=== PATIENT | male | born 2000 | race Caucasian/White ===

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

== ENCOUNTER 2020-01-29 09:36 | Inpatient (IN) ==
--- NOTE | 2020-01-29 09:46 | Emergency Department Note ---
History of Present Illness General Chief complaint: Mental Health Evaluation Stated complaint: MHE Source: patient, family and other (counselor) Mode of arrival: ambulatory Limitations: no limitations History of Present Illness Provider complaint: mood disorder Onset (ago): day(s) 1 This is a 19-year-old male who presents to the emergency department over concerns he is extremely anxious over coronavirus. The patient for his anxiety spoke with a counselor last evening. After speaking with a counselor the patient had difficulty sleeping and this morning woke up feeling worse. He reports nothing is making the anxiety better. He again spoke with his counselor this morning who sent him to the emergency department for further evaluation.Pt has a history of depression and has been prescribed Effexor and Buspar for the past few years. Pt feels as though the meds are no longer effective. He sees Ana M Garibay at [facility]. She added abilify (he only took it for 3 days because it made him feel groggy) and Wellbutrin one month ago. Pt took the Wellbutrin for 3-4 weeks but stopped because he reports that he started having episodes where he blacks out. He describes these episodes as lasting 10-30 min. His girlfriend described his behaviors to him during these periods as rang ing between yelling, throwing things, crying or just simply staring ahead. He states that he doesnt remember what happened when he snaps out of it. Home Medications Medication Instructions Recorded Confirmed Type ALBUTEROL HFA (VENTOLIN HFA) 2 - 4 puff INHALATION Q6H #0 07/22/17 01/29/20 History buspirone 7.5 mg PO BID 01/29/20 01/29/20 History venlafaxine 150 mg PO DAILY 01/29/20 01/29/20 History Allergies Allergy/AdvReac Type Severity Reaction Status Date / Time No Known Allergies Allergy Verified 01/29/20 10:03 Past Med/Surg History Social History Smoking Status: Never smoker Feels Safe at Home: Yes Review of Systems A total of 10 systems reviewed and were otherwise negative Physical Exam Vital Signs Vital Signs - 24 hr 01/29/20 09:44 Temperature 36.6 C Temperature Source Oral Pulse Rate 111 H Respiratory Rate 20 Blood Pressure 138/78 Blood Pressure Mean 98 Pulse Oximetry 96 Oxygen Delivery Method Room Air Sepsis Recent Fever Within 48 Hours No Sepsis New/Unexplained Change in Mental Status N/A Sepsis Action Taken by Nursing No Action Required VITAL SIGNS - Vital signs and nursing notes were reviewed. GENERAL - 19-year-old male appearing stated age who is in no acute distress. appears anxious SKIN - Without rashes. HEAD - NC/AT. EYES - PERRL with EOMI bilaterally. Sclera anicteric. Palpebral conjunctiva pink and moist with no injection noted. EARS - No deformities of external structures noted on gross examination bilaterally. No pain elicited with palpation of the tragus bilaterally. External auditory canals without discharge or otorrhea. Tympanic membranes pearly bansal without retraction or bulging. No fluid or purulent material visualized behind the TM. Handle of malleus, umbo, cone of light, pars tensa/flaccid all easily visualized. NOSE - Midline and without cyanosis. No epistaxis or purulent drainage noted. Septum midline without deviation or septal hematoma noted. MOUTH/OROPHARYNX - Without perioral cyanosis. Buccal mucosa pink and moist and without leukoplakia. Tongue midline with equal elevation of palate bilaterally. No tonsillar hypertrophy, erythema, or exudates noted. dentition noted. NECK - Neck with FROM. Supple to palpation. lymphadenopathy noted. No nuchal rigidity. LUNGS - Chest wall symmetric without accessory muscle use, intercostals retrac tions, or central cyanosis. Normal vesicular breath sounds CTA B/L. No wheezes, rales, or rhonchi appreciated. CARDIAC - RRR with S1/S2. No murmur, rubs, or gallops appreciated. ABDOMEN - Abdominal contour without pulsations or visible masses. BS normoactive all four quadrants. No tenderness, palpable masses, hepatosplenomegaly, or ascites noted. EXTREMITIES - No clubbing or peripheral cyanosis. No pretibial edema present. +3/5 radial, posterior tibial, and dorsalis pedis pulses palpated throughout. +5/5 strength noted in UE/LE bilaterally. NEUROLOGIC - Cranial nerves II through XII grossly intact. Sensory intact to light touch throughout. Patellar reflexes +2/4. PSYCH - A&Ox3 and cooperates fully with examiner. Pt is very pleasant and interacts well with examiner. Medical Decision Making Differential Diagnosis Mood disorder, infection, hypoglycemia, electrolyte abnormalities, cardiac sources, intracerebral event, toxicologic, trauma, neurologic, as well as other pathologies. Medical Records Attestation: I reviewed the patient's medical records. Home Medications Current Medication List: was personally reviewed by me Laboratory Data Attestation: I reviewed the patient's lab results. Result diagrams: 01/29/20 09:58 01/29/20 09:58 Lab Results 01/29/20 01/29/20 01/29/20 Range/Units 09:43 09:43 09:58 WBC 4.83 (4.8-10.8) K/uL RBC 4.82 (4.7-6.1) M/uL Hgb 13.9 L (14.0-18.0) g/dL Hct 41.1 L (42-52) % MCV 85.3 (80-100) fL MCH 28.8 (25-34) pg MCHC 33.8 (32-36) g/dL RDW Std Deviation 41.5 (36.4-46.3) fL RDW Coeff of Ann 13.4 (11.5-14.5) % Plt Count 192 (130-400) K/uL MPV 10.2 (7.4-10.4) fL Immature Gran % (Auto) 0.2 % Neut % (Auto) 58.6 % Lymph % (Auto) 30.4 % [place] % (Auto) 8.5 % Eos % (Auto) 1.9 % Baso % (Auto) 0.4 % Neut # (Auto) 2.83 (1.4-6.5) K/uL Lymph # (Auto) 1.47 (1.2-3.4) K/uL [place] # (Auto) 0.41 (0.11-0.59) K/uL Eos # (Auto) 0.09 (0-0.5) K/uL Baso # (Auto) 0.02 (0-0.2) K/uL Immature Gran # (Auto) 0.01 (0.00-0.02) K/uL Sodium (136-145) mmol/L Potassium (3.5-5.1) mmol/L Chloride (98-107) mmol/L Carbon Dioxide (21-32) mmol/L Anion Gap (3-11) BUN (7-18) mg/dl Creatinine (0.6-1.4) mg/dl Est Cr Clr Drug Dosing ml/min Est GFR ( Amer) Est GFR (Non-Af Amer) BUN/Creatinine Ratio (10-20) Glucose (70-99) mg/dl Calcium (8.5-10.1) mg/dl Total Bilirubin (0.2-1) mg/dl AST (15-37) U/L ALT (12-78) U/L Alkaline Phosphatase (45-117) U/L Total Protein (6.4-8.2) gm/dl Albumin (3.4-5.0) gm/dl Globulin (2.5-4.0) gm/dl Albumin/Globulin Ratio (0.9-2) TSH (0.300-4.500) uIu/ml Urine Color Yellow Urine Appearance Clear (Clear) Urine pH 7.0 (4.5-7.5) Ur Specific [place] 1.018 (1.000-1.030) Urine Protein Negative (Negative) Urine Glucose (UA) Negative (Negative) Urine Ketones Negative (Negative) Urine Blood Negative (Negative) Urine Nitrite Negative (Negative) Urine Bilirubin Negative (Negative) Urine Urobilinogen Negative (Negative) Ur Leukocyte Esterase Negative (Negative) Salicylates (2.8-20) mg/dl Urine Opiates Screen Neg (Neg) Ur Methadone, Qual Neg (Neg) Acetaminophen (10-30) ug/ml Urine Barbiturates Neg (Neg) Ur Phencyclidine (PCP) Neg (Neg) U Amphetamin/Meth Scrn Neg (Neg) MDMA (Ecstasy) Screen Neg (Neg) U Benzodiazepines Scrn Neg (Neg) Ur Cocaine Metabolite Neg (Neg) U Marijuana (THC) Screen Pos H (Neg) Ethyl Alcohol mg/dL (0-3) mg/dl 01/29/20 01/29/20 01/29/20 Range/Units 09:58 09:58 09:58 WBC (4.8-10.8) K/uL RBC (4.7-6.1) M/uL Hgb (14.0-18.0) g/dL Hct (42-52) % MCV (80-100) fL MCH (25-34) pg MCHC (32-36) g/dL RDW Std Deviation (36.4-46.3) fL RDW Coeff of Ann (11.5-14.5) % Plt Count (130-400) K/uL MPV (7.4-10.4) fL Immature Gran % (Auto) % Neut % (Auto) % Lymph % (Auto) % [place] % (Auto) % Eos % (Auto) % Baso % (Auto) % Neut # (Auto) (1.4-6.5) K/uL Lymph # (Auto) (1.2-3.4) K/uL [place] # (Auto) (0.11-0.59) K/uL Eos # (Auto) (0-0.5) K/uL Baso # (Auto) (0-0.2) K/uL Immature Gran # (Auto) (0.00-0.02) K/uL Sodium 142 (136-145) mmol/L Potassium 4.0 (3.5-5.1) mmol/L Chloride 109 H (98-107) mmol/L Carbon Dioxide 26 (21-32) mmol/L Anion Gap 6.0 (3-11) BUN 11 (7-18) mg/dl Creatinine 0.78 (0.6-1.4) mg/dl Est Cr Clr Drug Dosing 187.0 ml/min Est GFR ( Amer) > 150.0 Est GFR (Non-Af Amer) 130.9 BUN/Creatinine Ratio 14.2 (10-20) Glucose 94 (70-99) mg/dl Calcium 9.2 (8.5-10.1) mg/dl Total Bilirubin 0.3 (0.2-1) mg/dl AST 19 (15-37) U/L ALT 29 (12-78) U/L Alkaline Phosphatase 109 (45-117) U/L Total Protein 7.2 (6.4-8.2) gm/dl Albumin 3.7 (3.4-5.0) gm/dl Globulin 3.5 (2.5-4.0) gm/dl Albumin/Globulin Ratio 1.1 (0.9-2) TSH 0.684 (0.300-4.500) uIu/ml Urine Color Urine Appearance (Clear) Urine pH (4.5-7.5) Ur Specific [place] (1.000-1.030) Urine Protein (Negative) Urine Glucose (UA) (Negative) Urine Ketones (Negative) Urine Blood (Negative) Urine Nitrite (Negative) Urine Bilirubin (Negative) Urine Urobilinogen (Negative) Ur Leukocyte Esterase (Negative) Salicylates < 1.7 L (2.8-20) mg/dl Urine Opiates Screen (Neg) Ur Methadone, Qual (Neg) Acetaminophen < 2 L (10-30) ug/ml Urine Barbiturates (Neg) Ur Phencyclidine (PCP) (Neg) U Amphetamin/Meth Scrn (Neg) MDMA (Ecstasy) Screen (Neg) U Benzodiazepines Scrn (Neg) Ur Cocaine Metabolite (Neg) U Marijuana (THC) Screen (Neg) Ethyl Alcohol mg/dL < 3.0 (0-3) mg/dl MDM Narrative Patient was seen and evaluated as above in room A5. Review was performed of nursing notes and vital signs. I did review pertinent previous visits and patient history. After obtaining a thorough history and physical examination the above work up was performed. This is a 19-year-old male who presents emergency department over concerns about his anxiety. Patient was medically cleared by me. The patient was sent in by a counselor. He was independently evaluated by 3 S. liaison and was subsequently admitted. The patient was evaluated during the global COVID-19 pandemic, and that diagnosis was suspected/considered upon their initial presentation. Their evaluation, treatment and testing was consistent with current guidelines for patients who present with complaints or symptoms that may be related to COVID- 19. Impression & Plan Mood disorder Discharge Plan Visit Data Chief Complaint: Mental Health Evaluation Stated Complaint: MHE ED Provider: Gagan Colon Discharge Problem: Mood disorder Patient Disposition: Admitted As Inpatient Discharge Instructions Interventions: ED Discharge Assessment Last Done: 01/29/20 12:33
[2020-01-29 10:00] LABS: Appearance Urine Clear (Clear); Bilirubin Urine Negative (Negative); Blood Urine Negative (Negative); Color Urine Yellow; Glucose Urine UA Negative (Negative); Ketones Urine Negative (Negative); Leukocyte Esterase Urine Negative (Negative); Nitrite Urine Negative (Negative); Protein Urine Negative (Negative); Specific Gravity Urine 1.018 (1.000-1.030); Urobilinogen Urine Negative (Negative)
[2020-01-29 10:19] LABS: Basophils # (auto) 0.02 K/uL (0-0.2); Basophils % (auto) 0.4 %; Eosinophils # (auto) 0.09 K/uL (0-0.5); Eosinophils % (auto) 1.9 %; Hematocrit (blood only) 41.1 % (42-52); Hemoglobin 13.9 g/dL (14.0-18.0); Immature Granulocytes # (auto) 0.01 K/uL (0.00-0.02); Immature Granulocytes % (auto) 0.2 %; Lymphocytes # (auto) 1.47 K/uL (1.2-3.4); Lymphocytes % (auto) 30.4 %; Mean Corpuscular Hemoglobin 28.8 pg (25-34); Mean Corpuscular Hgb Conc 33.8 g/dL (32-36); Mean Corpuscular Volume 85.3 fL (80-100); Mean Platelet Volume 10.2 fL (7.4-10.4); Monocytes # (auto) 0.41 K/uL (0.11-0.59); Monocytes % (auto) 8.5 %; Neutrophils # (auto) 2.83 K/uL (1.4-6.5); Neutrophils % (auto) 58.6 %; Platelet Count 192 K/uL (130-400); RDW Coefficient of Variation 13.4 % (11.5-14.5); RDW Standard Deviation 41.5 fL (36.4-46.3); Red Blood Count 4.82 M/uL (4.7-6.1); White Blood Count 4.83 K/uL (4.8-10.8)
[2020-01-29 10:36] LABS: Amphetamines+Metham, Urine Neg (Neg); Barbiturates, Urine Neg (Neg); Benzodiazepine, Urine Neg (Neg); Cocaine, Urine Neg (Neg); MDMA (Ecstacy), Urine Neg (Neg); Methadone, Urine Neg (Neg); Opiate, Urine Neg (Neg); Phencyclidine, Urine Neg (Neg)
[2020-01-29 10:37] LABS: Alanine Aminotransferase 29 U/L (12-78); Albumin Level 3.7 gm/dl (3.4-5.0); Aspartate Aminotransferase 19 U/L (15-37); BUN Creatinine Ratio 14.2 (10-20); Blood Urea Nitrogen 11 mg/dl (7-18); Calcium 9.2 mg/dl (8.5-10.1); Carbon Dioxide 26 mmol/L (21-32); Chloride 109 mmol/L (98-107); Est GFR (African American) > 150.0; Est GFR (Non-African American) 130.9; Glucose 94 mg/dl (70-99); Sodium 142 mmol/L (136-145)
[2020-01-29 10:47] LABS: Albumin Globulin Ratio 1.1 (0.9-2); Alkaline Phosphatase 109 U/L (45-117); Bilirubin,Total 0.3 mg/dl (0.2-1); Globulin 3.5 gm/dl (2.5-4.0); Thyroid Stimulating Hormone 0.684 uIu/ml (0.300-4.500); Total Protein 7.2 gm/dl (6.4-8.2)
[2020-01-29 10:54] LABS: Acetaminophen < 2 ug/ml (10-30)
[2020-01-29 10:55] LABS: Salicylate < 1.7 mg/dl (2.8-20)
[2020-01-29] MEDS ORDERED: BISMUTH SUBSALICYLATE LIQD 236 ML PO PRN (11:52)
[2020-01-29] MEDS ORDERED: SODIUM CHLORIDE 0.65% NA SOLN 45 ML (OCEAN) PRN (11:52)
[2020-01-29] MEDS ORDERED: ACETAMINOPHEN 325 MG TAB PO PRN (11:52)
[2020-01-29] MEDS ORDERED: hydrOXYzine HCl 25 MG TAB PO PRN ×2 (11:52)
[2020-01-29] MEDS ORDERED: ALUMINUM/MAGNESIUM SUSP 30 ML UDC PO PRN (11:52)
[2020-01-29] MEDS ORDERED: MAGNESIUM HYDROXIDE SUSP 30 ML UDC PO PRN (11:52)
[2020-01-29] MEDS ORDERED: ALBUTEROL HFA INHALER 8.5 GM INH PRN (12:05)
--- NOTE | 2020-01-29 12:14 | History & Physical ---
Date of Service January 29, 2020 Impression / Recommendations Impression 19-year-old biologically male patient who identifies as nonbinary admitted voluntarily for inpatient psychiatric treatment on 01/29/2020 due to severe anxiety, inability to function/care for self, and failure of outpatient psychiatric treatment. It was reported that patient has been experiencing "black-outs" lasting 10-30 minutes of crying, throwing things, or staring off into the distance. Pt has a recent diagnosis of depression "with mood congruent psychotic symptoms", for which they have been taking venlafaxine 150mg and buspirone 7.5mg BID to target anxiety, but no longer feels these medications are effective. They had a brief trial of aripiprazole, but stopped the medication as it led to headaches and feeling groggy. Pt had also been prescribed bupropion 100mg but stated that this medication contributed to increased "black outs" and GI upset and was therefore not tolerated. Pt did feel that venlafaxine had historically been beneficial for mood and anxiety symptoms, and is interested in increasing the dose before trialing another agent. Of note, the patient's mother has reportedly done well with escitalopram for treatment of depression. Pt also agreed to titrating buspirone to 10mg BID to target anxiety, and we can consider further increase as indicated/tolerated. Although the patient is not yet comfortable opening up about details related to auditory hallucinations, this will need to be explored further in order to make a better diagnostic assessment. While staff builds therapeutic rapport and patient acclimates to the unit, we will offer prn dosing of risperidone 0.5mg to target hallucinations. Pt will be encouraged to participate in group and recreational programming. We will encourage a family meeting to discuss safety and discharge planning. At this time, patient is experiencing significant anxiety and is no longer able to care for their needs in the outpatient setting. They are not presently reporting SI, but did report an attempt to self-harm by cutting within the context of a blackout episode. The patient's failure of outpatient treatment is concerning and inpatient psychiatric hospitalization is felt to be medically necessary at this time. Dr. Radha Peacock was directly involved in review and discussion of the patient's case and participated in medical decision making regarding treatment recommendations. (1) Mood disorder: 01/28 - Working diagnosis of unspecified mood disorder. Differential includes: major depressive disorder, MDD with psychotic features, substance-induced mood disorder/hallucinations, schizoaffective disorder, personality disorder, or other possible diagnoses. Will build therapeutic rapport with the patient to better determine the most appropriate diagnosis as they feel comfortable discussing symptoms. - Titrating venlafaxine to 187.5mg qAM - Titrating buspirone to 10mg BID, adding prn risperidone 0.5mg to be used to target auditory hallucinations - Will attempt to gather collateral information from outpatient psychiatric providers - Encourage participation in group and recreational programming - Assist with development of healthy and effective coping skills - Encourage a family meeting to discuss discharge and safety planning - 15 minute observation checks to ensure safety while admitted to a locked behavioral health unit (2) Auditory hallucinations: 01/28 - Pt is not yet comfortable discussing the auditory hallucinations in great detail, which limits the ability to better determine their etiology. They cert ainly could be a function of patient's regular marijuana use. They could also be occurring within the context of MDD with psychotic features, schizoaffective disorder, or a function of an underlying personality disorder. - Will build therapeutic rapport and assist patient in opening up about these details during their stay. - In the interim, prn risperidone 0.5mg is available to target the auditory hallucinations directly (3) Generalized anxiety disorder with panic attacks: 01/28 - "Black outs" seem to be most consistent with panic attacks, and result from specific stressful triggers. - Titrating venlafaxine and buspirone as above, adding risperidone prn for auditory hallucinations/agitation - PRN hydroxyzine is available as needed for anxiety/sleep - Assist patient with development of healthy and effective coping strategies Risk Factors Assessment : Yes Do You Have Access To A Gun?: No Health Problems: No Mental Health Diagnoses: Yes Substance Use Disorders: Yes (chronic marijuana use) Previous Attempt: No Family History of Suicide: No Previous Psychiatric Hospitalization: No Hopelessness: Yes Smoker: No Protective Factors Assessment Oriental Orthodox Beliefs: No : No Responsible for Young Children: No Employed: No Stable Relationships: Yes Psychiatric History Identifying Data LINDA SAHNI (JAY) is a 19-year-old biologically male individual who identifies as non-binary with a preference for "they/them/their" pronouns. Language used in this documentation will reflect that preference. The patient currently lives in [place], [place] where they are attending school, but family lives in [place]. The patient has a history of depression and anxiety, and was admitted on 01/29/2020 on a 201 voluntary commitment for worsening anxiety and depression leading to failure of outpatient treatment and inability to adequately care for self. Chief Complaint "I've been having a lot of new symptoms with my anxiety and depression. It started about a month ago." History of Present Illness Linda Sahni (Jay) is a 19-year-old biologically male individual who identifies as nonbinary and prefers "they/them/their" pronouns. Language in this H&P will reflect this preference. The patient was admitted voluntarily for inpatient psychiatric treatment on 01/29/2020 after presenting to the ED for mental health evaluation. Armani was reportedly experiencing significant anxiety last evening, but was able to contract for safety in the outpatient setting. The morning of admission, it was reported that their anxiety was worse and they did not feel they were able to manage symptoms safely. Pt did report that they had recently attempted to self-harm by cutting with an X-acto knife within the contest of a "black-out" episode. These urges have become more frequent, and friends have reported concern for recent changes in behavior. Armani reported in the ED that these episodes can last for 10-30 minutes, but patient does not often recall events that occur during these times. Inpatient admission was suggested and patient was willing for discussion regarding worsening symptoms and possible medication changes. Additional stressors at this time include poor academic performance, long-distance relationship with their girlfriend, and their mother receiving treatment for breast cancer. The patient is cooperative and pleasant, but is rather timid. They states "I've been having a lot of new symptoms with my anxiety and depression. It started about a month ago." The patient reports that they had been evaluated by two psychologist recently and they were informed their diagnosis is "MDD with mood congruent psychotic symptoms." The patient also has been following with Ana M Garibay at [facility] for several years for medication management. The patient states that new symptoms of "episodes, blackouts, getting upset, irritable, stuttering, and ticking" in the last month - generally in the context of specific identified stressors. The patient states that in the moment they are not generally aware of their actions, but are able to recall events that occur during these blackouts with prompting from witnesses. The patient reports that they had previously done well with venlafaxine for treatment of anxiety and depression, but feels "I'm no longer satisfied with what it's doing." This was expressed to their outpatient psychiatric PAGena who suggested a trial of Wellbutrin. The patient states that this made the "episodes" worse and also led to GI upset. A brief trial of Abilify was also suggested; however, led to headache which patient states they could not tolerate. The patient admits they are diligent about taking their medications as prescribed. Pt does admit to increased anxiety and depression, rating average mood over the last 1-2 months as a 2-3/10 (10=best). The patient states they have been struggling intermittently with SI and SIB, even acting on SIB urges by superficially cutting their arm recently. The patient admits to passive SI, but denies plan or intent. They are denying SI presently. The patient does admit to decreased motivation and productivity, increased appetite, difficulty concentrating, hopelessness, worthlessness, and some memory concerns. The patient also admits that they have been experiencing auditory hallucinations of "several voices, they are angry" which are described as "constant, unless I'm having a really good day, but that's rare." Unfortunately, the patient states that they are "too scared to talk about this anymore." It is reported that the voices were first observed about 1 month ago. Pt was reassured that it is ok to not discuss this in detail at this time, but that it would be beneficial for patient to open up about this as they feel more comfortable with staff. Pt does admit to daily marijuana use, but denies other significant substance use. This is their first psychiatric hospitalization. Past Psychiatric History Current Psychiatric Diagnosis: Depression Outpatient Services: Psychiatry - Ana M Garibay PA-C - [facility] - [facility] - [facility] - [place] Previous Psych Admissions: None Do You Have Access To A Gun?: No History of Previous Suicide Attempt: No Past Medication Trials: 1. Hydroxyzine 2. Wellbutrin 3. Abilify - d/c'd after 3 days as it caused him to feel groggy 4. Effexor 5. BuSpar Past Head Trauma/Neuro History History of Concussion/Seizure: No Allergies Allergy/AdvReac Type Severity Reaction Status Date / Time No Known Allergies Allergy Verified 01/29/20 10:03 Home Medications Medication Instructions Recorded Confirmed Type ALBUTEROL HFA (VENTOLIN HFA) 2 - 4 puff INHALATION Q6H #0 07/22/17 01/29/20 History buspirone 7.5 mg PO BID 01/29/20 01/29/20 History venlafaxine 150 mg PO DAILY 01/29/20 01/29/20 History Family History Family History of: Depression (maternal side of family) and Anxiety (maternal side of family) Family Mental Health History Comment: Mother - depression/anxiety Alcohol History Hx of Alcohol Use Over the Past 12 Months: Yes Pt does admit to occasional alcohol use. Frequency of "a couple times a month", generally drink to the point of "feeling buzzed." Smoking Use Smoking Status: Never smoker Substance History Hx of Prescription Med Misuse Over the Past 12 Months: No Hx of Over the Counter Med Misuse Over the Past 12 Months: No Hx of Inhalent Misuse Over the Past 12 Months: No Hx of Organic Substance Use Over the Past 12 Months: Yes (marijuana) Hx of Illegal Substances/Street Drug Use Over Past 12 Months: No Admits to routine/daily marijuana use. Reports they have not smoked MJ in the last "few days". Personal History Living Arrangements: Apartment (lives with friends in [place] ) Living Arrangements Comments: Family resides in [place]. Highest Grade Completed: Some College (currently a Sophomore at [employer] - studying Education) Employment Status: Student Marital Status: Single (relationship with girlfriend has been long-distance due to COVID-19 pandemic) Number Of Children: None Beliefs That Will Affect Care: None Current Legal Problems: No Hx Legal Problems: No Hx Traumatic Life Events: No Psychological Trauma History Comment: Denied Patient History Surgical History (Updated 01/29/20 @ 14:06 by Jess Sheehan PA-C) History of knee surgery Social History Smoking Status: Never smoker Preferred Language: Syriac Communication Ability: Effective Occupational Ther Required: No Beliefs That Will Affect Care: None Feels Safe at Home: Yes Assistive Devices: Glasses Review of Systems Review of Systems: Constitutional: denied Cardiovascular: denied Respiratory: denied Gastrointestinal: denied Neurological: denied Psychiatric: denies symptoms other than stated above Total of at least 10 systems reviewed, pertinent positives as above and in HPI. Physical Exam Psychiatric: Orientation: alert, oriented x 3 and cooperative (timid, but polite and cooperative) Apperance: appropriately dressed and appropriately groomed Pt's appearance is generally phenotypically male. They have short hair, but hair is dyed a bright pink color. Pt is wearing corrective lenses and has a nose piercing. Pt is clutching a stuffed alligator for the duration of our conversation. Clothing is also phenotypically male, patient wearing a t- shirt, zip-up hoodie, and jeans. Level of grooming and hygiene appears adequate. Eye Contact: + poor eye contact Motor Behavior: + psychomotor agitation; + abnormal motor movements Pt is fidgety, frequently changing positions or shaking their foot. Intermittently, full body tics/jerks are observed which patient states are consistent with "black out episodes" Speech: normal rate/rhythm/volume of speech Affect: + depressed affect, + anxious affect and mood congruent with affect Mood: + depressed mood and + anxious mood Thought Process: goal directed thought process, clear/coherent thought process and thought association intact Thought Content: reality based without delusions and + hopelessness Suicidal Thoughts: denies suicidal thoughts, denies suicidal plan and denies suicidal intent Presently denying SI, but does admit to occasional SI without plan or intent Homicidal Thoughts: denies homicidal thoughts Hallucinations: + auditory hallucinations (reports hearing several voices "all the time", voices are "angry"); no visual hallucinations Limited willingness at this time to discuss the specifics of the auditory hallucinations Cognition: attention grossly intact and language grossly intact Estimated Intelligence: consistent with education level Insight: + fair insight Judgement: + fair judgement Vital Signs (Past 24 Hours): Last Vital Signs Temp 36.6 C 01/29/20 09:44 Pulse 111 H 01/29/20 09:44 Resp 20 01/29/20 09:44 BP 138/78 01/29/20 09:44 Pulse Ox 96 01/29/20 09:44 Exam Statement: A physical exam was performed in the ER prior to admission to the unit by Dr. Gagan Colon MD. I accept that physical as correct/medical clearance for the inpatient physical exam. Results & Data ([facility]) Laboratory Results Laboratory Results - last 24 hr 11/01/29/20 01/29/20 09:43 09:43 09:43 WBC RBC Hgb Hct MCV MCH MCHC RDW Std Deviation RDW Coeff of Ann Plt Count MPV Immature Gran % (Auto) Neut % (Auto) Lymph % (Auto) [place] % (Auto) Eos % (Auto) Baso % (Auto) Neut # (Auto) Lymph # (Auto) [place] # (Auto) Eos # (Auto) Baso # (Auto) Immature Gran # (Auto) Sodium Potassium Chloride Carbon Dioxide Anion Gap BUN Creatinine Est Cr Clr Drug Dosing Est GFR ( Amer) Est GFR (Non-Af Amer) BUN/Creatinine Ratio Glucose Calcium Total Bilirubin AST ALT Alkaline Phosphatase Total Protein Albumin Globulin Albumin/Globulin Ratio TSH Urine Color Yellow Urine Appearance Clear Urine pH 7.0 Ur Specific Erick 1.018 Urine Protein Negative Urine Glucose (UA) Negative Urine Ketones Negative Urine Blood Negative Urine Nitrite Negative Urine Bilirubin Negative Urine Urobilinogen Negative Ur Leukocyte Esterase Negative Salicylates Urine Opiates Screen Neg Ur Methadone, Qual Neg Acetaminophen Urine Barbiturates Neg Ur Phencyclidine (PCP) Neg U Amphetamin/Meth Scrn Neg MDMA (Ecstasy) Screen Neg U Benzodiazepines Scrn Neg Ur Cocaine Metabolite Neg U Marijuana (THC) Screen Pos H U Marijuana THC Carboxy Pending Drug Screen Comment Pending Ethyl Alcohol mg/dL SARS-CoV-2 Ag (Rapid) 01/29/20 01/29/20 01/29/20 09:58 09:58 09:58 WBC 4.83 RBC 4.82 Hgb 13.9 L Hct 41.1 L MCV 85.3 MCH 28.8 MCHC 33.8 RDW Std Deviation 41.5 RDW Coeff of Ann 13.4 Plt Count 192 MPV 10.2 Immature Gran % (Auto) 0.2 Neut % (Auto) 58.6 Lymph % (Auto) 30.4 [place] % (Auto) 8.5 Eos % (Auto) 1.9 Baso % (Auto) 0.4 Neut # (Auto) 2.83 Lymph # (Auto) 1.47 [place] # (Auto) 0.41 Eos # (Auto) 0.09 Baso # (Auto) 0.02 Immature Gran # (Auto) 0.01 Sodium 142 Potassium 4.0 Chloride 109 H Carbon Dioxide 26 Anion Gap 6.0 BUN 11 Creatinine 0.78 Est Cr Clr Drug Dosing 187.0 Est GFR ( Amer) > 150.0 Est GFR (Non-Af Amer) 130.9 BUN/Creatinine Ratio 14.2 Glucose 94 Calcium 9.2 Total Bilirubin 0.3 AST 19 ALT 29 Alkaline Phosphatase 109 Total Protein 7.2 Albumin 3.7 Globulin 3.5 Albumin/Globulin Ratio 1.1 TSH 0.684 Urine Color Urine Appearance Urine pH Ur Specific Erick Urine Protein Urine Glucose (UA) Urine Ketones Urine Blood Urine Nitrite Urine Bilirubin Urine Urobilinogen Ur Leukocyte Esterase Salicylates < 1.7 L Urine Opiates Screen Ur Methadone, Qual Acetaminophen < 2 L Urine Barbiturates Ur Phencyclidine (PCP) U Amphetamin/Meth Scrn MDMA (Ecstasy) Screen U Benzodiazepines Scrn Ur Cocaine Metabolite U Marijuana (THC) Screen U Marijuana THC Carboxy Drug Screen Comment Ethyl Alcohol mg/dL SARS-CoV-2 Ag (Rapid) 01/29/20 01/29/20 09:58 Unknown WBC RBC Hgb Hct MCV MCH MCHC RDW Std Deviation RDW Coeff of Ann Plt Count MPV Immature Gran % (Auto) Neut % (Auto) Lymph % (Auto) [place] % (Auto) Eos % (Auto) Baso % (Auto) Neut # (Auto) Lymph # (Auto) [place] # (Auto) Eos # (Auto) Baso # (Auto) Immature Gran # (Auto) Sodium Potassium Chloride Carbon Dioxide Anion Gap BUN Creatinine Est Cr Clr Drug Dosing Est GFR ( Amer) Est GFR (Non-Af Amer) BUN/Creatinine Ratio Glucose Calcium Total Bilirubin AST ALT Alkaline Phosphatase Total Protein Albumin Globulin Albumin/Globulin Ratio TSH Urine Color Urine Appearance Urine pH Ur Specific Erick Urine Protein Urine Glucose (UA) Urine Ketones Urine Blood Urine Nitrite Urine Bilirubin Urine Urobilinogen Ur Leukocyte Esterase Salicylates Urine Opiates Screen Ur Methadone, Qual Acetaminophen Urine Barbiturates Ur Phencyclidine (PCP) U Amphetamin/Meth Scrn MDMA (Ecstasy) Screen U Benzodiazepines Scrn Ur Cocaine Metabolite U Marijuana (THC) Screen U Marijuana THC Carboxy Drug Screen Comment Ethyl Alcohol mg/dL < 3.0 SARS-CoV-2 Ag (Rapid) Negative Current Inpatient Medications Current Inpatient Medications: Current Inpatient Medications Acetaminophen (Acetaminophen 325 Mg Tab) 650 mg PO Q4H PRN PRN Reason: Headache or Minor Fever Stop: 02/28/20 11:51 Al Hydrox/Mg Hydrox/Simethicone (Aluminum/Magnesium Susp 30 Ml Udc) 30 ml PO Q4H PRN PRN Reason: GI Upset Stop: 02/28/20 11:51 Bismuth Subsalicylate (Bismuth Subsalicylate Liqd 236 Ml) 15 ml PO PRN PRN PRN Reason: Loose Stool Stop: 02/28/20 11:51 Hydroxyzine HCl (Hydroxyzine Hcl 25 Mg Tab) 50 mg PO HSZ PRN PRN Reason: Insomnia Stop: 02/28/20 11:51 Hydroxyzine HCl (Hydroxyzine Hcl 25 Mg Tab) 25 mg PO Q4H PRN PRN Reason: Anxiety Stop: 02/28/20 11:51 Magnesium Hydroxide (Magnesium Hydroxide Susp 30 Ml Udc) 30 ml PO DAILY PRN PRN Reason: Constipation Stop: 02/28/20 11:51 Non-Formulary Medication (Albuterol Hfa (Ventolin Hfa)) 2 - 4 puffs INH Q6H PRN PRN Reason: shortness of breath Stop: 02/28/20 11:59 Sodium Chloride (Sodium Chloride 0.65% Na Soln 45 Ml ([place])) 1 - 2 sprays NA PRN PRN PRN Reason: Nasal Dryness/Congestion Stop: 02/28/20 11:51
[2020-01-29] MEDS: busPIRone 5 MG TAB PO SCH (21:14)
[2020-01-30] MEDS: VENLAFAXINE HCL XR 150 MG CAPXR PO SCH (08:40)
[2020-01-30] MEDS: VENLAFAXINE HCL XR 37.5 MG CAPXR PO SCH (08:40)
[2020-01-30] MEDS: busPIRone 5 MG TAB PO SCH ×2 (08:41→14:44)
--- NOTE | 2020-01-30 11:32 | Psychiatric Progress Note ---
Date of Service January 30, 2020 Impression / Recommendations Impression 19-year-old biologically male patient who identifies as nonbinary admitted voluntarily for inpatient psychiatric treatment on 01/29/2020 due to severe anxiety, inability to function/care for self, and failure of outpatient psychiatric treatment. It was reported that patient has been experiencing "black-outs" lasting 10-30 minutes of crying, throwing things, or staring off into the distance. Pt has a recent diagnosis of depression "with mood congruent psychotic symptoms", for which they have been taking venlafaxine 150mg and buspirone 7.5mg BID to target anxiety, but no longer feels these medications are effective. They had a brief trial of aripiprazole, but stopped the medication as it led to headaches and feeling groggy. Pt had also been prescribed bupropion 100mg but stated that this medication contributed to increased "black outs" and GI upset and was therefore not tolerated. Pt did feel that venlafaxine had historically been beneficial for mood and anxiety symptoms, and is interested in increasing the dose before trialing another agent. Of note, the patient's mother has reportedly done well with escitalopram for treatment of depression. Pt also agreed to titrating buspirone to 10mg BID to target anxiety, and we can consider further increase as indicated/tolerated. Although the patient is not yet comfortable opening up about details related to auditory hallucinations, this will need to be explored further in order to make a better diagnostic assessment. While staff builds therapeutic rapport and patient acclimates to the unit, we will offer prn dosing of risperidone 0.5mg to target hallucinations. Pt will be encouraged to participate in group and recreational programming. We will encourage a family meeting to discuss safety and discharge planning. At this time, patient is experiencing significant anxiety and is no longer able to care for their needs in the outpatient setting. They are not presently reporting SI, but did report an attempt to self-harm by cutting within the context of a blackout episode. The patient's failure of outpatient treatment is concerning and inpatient psychiatric hospitalization is felt to be medically necessary at this time. 01/29--reviewed, reports feeling calmer today, still difficult to confirm hx with and doesn't elaborate on sellers but no evidence of thought or behavioral disorganization that would suggest a primary thought disorder. Main differential seems MDD with PF and anxiety vs unspecified bipolar disorder. (1) Mood disorder: 01/28 - Working diagnosis of unspecified mood disorder. Differential includes: major depressive disorder, MDD with psychotic features, substance-induced mood disorder/hallucinations, schizoaffective disorder, personality disorder, or other possible diagnoses. Will build therapeutic rapport with the patient to better determine the most appropriate diagnosis as they feel comfortable discussing symptoms. - Titrating venlafaxine to 187.5mg qAM - Titrating buspirone to 10mg BID, adding prn risperidone 0.5mg to be used to target auditory hallucinations - Will attempt to gather collateral information from outpatient psychiatric providers - Encourage participation in group and recreational programming - Assist with development of healthy and effective coping skills - Encourage a family meeting to discuss discharge and safety planning - 15 minute observation checks to ensure safety while admitted to a locked behavioral health unit 01/29--shifted doses of Buspar for better day time coverage, monitor for activation on higher dose of Effexor XR. Given other symptoms/reaction to Wellbutrin, hesitant to continue antidepressant alone. Consider Lamictal. Abstain from MJ. (2) Auditory hallucinations: 01/28 - Pt is not yet comfortable discussing the auditory hallucinations in great detail, which limits the ability to better determine their etiology. They certainly could be a function of patient's regular marijuana use. They could also be occurring within the context of MDD with psychotic features, schizoaffective disorder, or a function of an underlying personality disorder. - Will build therapeutic rapport and assist patient in opening up about these details during their stay. - In the interim, prn risperidone 0.5mg is available to target the auditory hallucinations directly 01/29--if sellers recur, encouraged to use Risperdal prn. Abstain from MJ. (3) Generalized anxiety disorder with panic attacks: 01/28 - "Black outs" seem to be most consistent with panic attacks, and result from specific stressful triggers. - Titrating venlafaxine and buspirone as above, adding risperidone prn for auditory hallucinations/agitation - PRN hydroxyzine is available as needed for anxiety/sleep - Assist patient with development of healthy and effective coping strategies 01/29--atypical, ?mood drive, abstain from MJ. Risk Factors Assessment : Yes Do You Have Access To A Gun?: No Health Problems: No Mental Health Diagnoses: Yes Substance Use Disorders: Yes (chronic marijuana use) Previous Attempt: No Family History of Suicide: No Previous Psychiatric Hospitalization: No Hopelessness: Yes Smoker: No Protective Factors Assessment Worship Beliefs: No : No Responsible for Young Children: No Employed: No Stable Relationships: Yes Interval History Chief Complaint "I just felt like a block like I couldn't talk about certain things". Review of Systems Sleep Information Total Hours of Sleep: 6.5 Meal Information Percent Meal Consumed - Breakfast: 100 Percent Meal Consumed - Dinner: 100 Subjective Subjective Patient was seen & assessed and interval progress reviewed with nursing. Has been cooperative on unit. Ambivalent about Effexor XR increase, states that it's helped them in past but also that makes feel numb. Attempted to obtain additional history around stressors, discussed stressors as a pie--endorses that 5/10 of pie are school related stressors. 3/10 are "gender stuff I wanted to see a specialized therapist for", and 2/10 worry about mom following 1st round of chemo for breast CA, had issues with her port on same day he was hospitalized. Worries as father ED physician and exposed to COVID. States that despite decline in mood and behavioral control for past 2 months, has been able to keep up with school work. Grades just "aren't as good" as usual. Doesn't elaborate further, still states "they told me not to talk about them" when discussing aud sellers, notes from [facility] state more than 2 arguing, denies command in nature. States that no association with MJ use or his "spells" where breaks into "someone else" for 20 min-1 hr. Spells occur once a week, more often when on Wellbutrin. Views self as primarily anxious, feeling in body rather than specific thought, no persistent periods of elevated mood but certainly irritable during the outbursts. Physical Exam Psychiatric Orientation: alert Apperance: appropriately dressed and appropriately groomed Eye Contact: + fair eye contact Motor Behavior: no abnormal motor movements Speech: normal rate/rhythm/volume of speech Affect: + depressed affect Mood: + depressed mood and + anxious mood Thought Process: goal directed thought process Thought Content: reality based without delusions Suicidal Thoughts: denies suicidal thoughts Homicidal Thoughts: denies homicidal thoughts Hallucinations: + auditory hallucinations (endorses in general but does not appear to be responding to internal stim) Cognition: attention grossly intact Estimated Intelligence: consistent with education level Insight: + limited insight Judgement: + limited judgement Vital Signs (Past 24 Hours) Last Vital Signs Temp 36.6 C 01/30/20 06:55 Pulse 87 01/30/20 06:55 Resp 16 01/30/20 06:55 BP 112/68 01/30/20 06:55 Pulse Ox 99 01/29/20 12:19 Results & Data ([facility]) Current Inpatient Medications Current Inpatient Medications: Current Inpatient Medications Acetaminophen (Acetaminophen 325 Mg Tab) 650 mg PO Q4H PRN PRN Reason: Headache or Minor Fever Stop: 02/28/20 11:51 Al Hydrox/Mg Hydrox/Simethicone (Aluminum/Magnesium Susp 30 Ml Udc) 30 ml PO Q4H PRN PRN Reason: GI Upset Stop: 02/28/20 11:51 Albuterol (Albuterol Hfa Inhaler 8.5 Gm) 2 - 4 puffs INH Q6H PRN PRN Reason: shortness of breath Stop: 02/28/20 12:04 Bismuth Subsalicylate (Bismuth Subsalicylate Liqd 236 Ml) 15 ml PO PRN PRN PRN Reason: Loose Stool Stop: 02/28/20 11:51 Buspirone HCl (Buspirone 5 Mg Tab) 10 mg PO [id number] ANITA Stop: 02/29/20 13:59 Hydroxyzine HCl (Hydroxyzine Hcl 25 Mg Tab) 50 mg PO HSZ PRN PRN Reason: Insomnia Stop: 02/28/20 11:51 Hydroxyzine HCl (Hydroxyzine Hcl 25 Mg Tab) 25 mg PO Q4H PRN PRN Reason: Anxiety Stop: 02/28/20 11:51 Last Admin: 01/30/20 03:10 Dose: 25 mg Documented by: Magnesium Hydroxide (Magnesium Hydroxide Susp 30 Ml Udc) 30 ml PO DAILY PRN PRN Reason: Constipation Stop: 02/28/20 11:51 Risperidone (Risperidone 0.5 Mg Tablet) 0.5 mg PO Q6H PRN PRN Reason: auditory sellers/agitation Stop: 02/28/20 14:24 Sodium Chloride (Sodium Chloride 0.65% Na Soln 45 Ml ([place])) 1 - 2 sprays NA PRN PRN PRN Reason: Nasal Dryness/Congestion Stop: 02/28/20 11:51 Venlafaxine HCl (Venlafaxine Hcl Xr 150 Mg Capxr) 150 mg PO DAILY ANITA Stop: 02/29/20 08:59 Last Admin: 01/30/20 08:40 Dose: 150 mg Documented by: Venlafaxine HCl (Venlafaxine Hcl Xr 37.5 Mg Capxr) 37.5 mg PO QAM ANITA Stop: 02/29/20 08:59 Last Admin: 01/30/20 08:40 Dose: 37.5 mg Documented by: Mental Health & Subst Abuse Tx Psychiatrist Name of Psychiatrist: [facility] Garibay Psychiatrist's Date of Appointment with Psychiatrist: 02/13/20 Time of Appointment with Psychiatrist: 8:30 a.m. Psychiatric Appointment Comment: In person appt due to hospital discharge Therapist Name of Therapist: Samuel Ferro Therapist's Date of Therapist Appointment: 02/06/20 Time of Therapist Appointment: 9:30 a.m. Therapy Appointment Comment: Telehealth (will email you the link), if wanted in person please call Fingernail Former Name of Fingernail Former: None Post Discharge Appointments Primary Care Physician Name Of Family Doctor: Avi Mckeon Primary Care Time of Appointment with PCP: Please follow up as needed Provider Appointment Comment: [address], [place] [address] Contact Information Discharge Discharge Address: [address] [place] [address], [place] [address]
[2020-01-30] MEDS: risperiDONE 0.5 MG TABLET PO PRN (21:33)
[2020-01-31 04:01] LABS: Marijuana Quant, GCMS Urine 28 ng/mL (<5)
[2020-01-31] MEDS: busPIRone 5 MG TAB PO SCH ×2 (06:34→13:51)
[2020-01-31] MEDS: VENLAFAXINE HCL XR 150 MG CAPXR PO SCH (08:48)
[2020-01-31] MEDS: VENLAFAXINE HCL XR 37.5 MG CAPXR PO SCH (08:48)
[2020-01-31] MEDS: risperiDONE 0.5 MG TABLET PO PRN (09:47)
[2020-01-31] MEDS ORDERED: BENZTROPINE MESYLATE 1 MG TAB PO PRN (10:02)
--- NOTE | 2020-01-31 10:12 | Psychiatric Progress Note ---
Date of Service January 31, 2020 Impression / Recommendations Impression 19-year-old biologically male patient who identifies as nonbinary admitted voluntarily for inpatient psychiatric treatment on 01/29/2020 due to severe anxiety, inability to function/care for self, and failure of outpatient psychiatric treatment. It was reported that patient has been experiencing "black-outs" lasting 10-30 minutes of crying, throwing things, or staring off into the distance. Pt has a recent diagnosis of depression "with mood congruent psychotic symptoms", for which they have been taking venlafaxine 150mg and buspirone 7.5mg BID to target anxiety, but no longer feels these medications are effective. They had a brief trial of aripiprazole, but stopped the medication as it led to headaches and feeling groggy. Pt had also been prescribed bupropion 100mg but stated that this medication contributed to increased "black outs" and GI upset and was therefore not tolerated. Pt did feel that venlafaxine had historically been beneficial for mood and anxiety symptoms, and is interested in increasing the dose before trialing another agent. Of note, the patient's mother has reportedly done well with escitalopram for treatment of depression. Pt also agreed to titrating buspirone to 10mg BID to target anxiety, and we can consider further increase as indicated/tolerated. Although the patient is not yet comfortable opening up about details related to auditory hallucinations, this will need to be explored further in order to make a better diagnostic assessment. While staff builds therapeutic rapport and patient acclimates to the unit, we will offer prn dosing of risperidone 0.5mg to target hallucinations. Pt will be encouraged to participate in group and recreational programming. We will encourage a family meeting to discuss safety and discharge planning. At this time, patient is experiencing significant anxiety and is no longer able to care for their needs in the outpatient setting. They are not presently reporting SI, but did report an attempt to self-harm by cutting within the context of a blackout episode. The patient's failure of outpatient treatment is concerning and inpatient psychiatric hospitalization is felt to be medically necessary at this time. 01/29--reviewed, reports feeling calmer today, still difficult to confirm hx with and doesn't elaborate on sellers but no evidence of thought or behavioral disorganization that would suggest a primary thought disorder. Main differential seems MDD with PF and anxiety vs unspecified bipolar disorder. 01/30--remains guarded around sellers and gender dysphoria, seems regressed and unable to safety plan outside of the hospital, needs family meeting. (1) Mood disorder: 01/28 - Working diagnosis of unspecified mood disorder. Differential includes: major depressive disorder, MDD with psychotic features, substance-induced mood disorder/hallucinations, schizoaffective disorder, personality disorder, or other possible diagnoses. Will build therapeutic rapport with the patient to better determine the most appropriate diagnosis as they feel comfortable discussing symptoms. - Titrating venlafaxine to 187.5mg qAM - Titrating buspirone to 10mg BID, adding prn risperidone 0.5mg to be used to target auditory hallucinations - Will attempt to gather collateral information from outpatient psychiatric providers - Encourage participation in group and recreational programming - Assist with development of healthy and effective coping skills - Encourage a family meeting to discuss discharge and safety planning - 15 minute observation checks to ensure safety while admitted to a locked behavioral health unit 01/29--shifted doses of Buspar for better day time coverage, monitor for activation on higher dose of Effexor XR. Given other symptoms/reaction to Wellbutrin, hesitant to continue antidepressant alone. Consider Lamictal. Abstain from MJ. (2) Auditory hallucinations: 01/28 - Pt is not yet comfortable discussing the auditory hallucinations in great detail, which limits the ability to better determine their etiology. They certainly could be a function of patient's regular marijuana use. They could also be occurring within the context of MDD with psychotic features, schizoaffective disorder, or a function of an underlying personality disorder. - Will build therapeutic rapport and assist patient in opening up about these details during their stay. - In the interim, prn risperidone 0.5mg is available to target the auditory hallucinations directly 01/29--if sellers recur, encouraged to use Risperdal prn. Abstain from MJ. 01/30--add standing Risperdal 0.5 mg PO BID (am and evening) for depression with pf vs mixed episode bipolar, fasting metabolic labs for am. Discussed need for ongoing monitoring for TD and metabolic abnormalities, no abnormal motor movements at baseline. (3) Generalized anxiety disorder with panic attacks: 01/28 - "Black outs" seem to be most consistent with panic attacks, and result from specific stressful triggers. - Titrating venlafaxine and buspirone as above, adding risperidone prn for auditory hallucinations/agitation - PRN hydroxyzine is available as needed for anxiety/sleep - Assist patient with development of healthy and effective coping strategies 01/29--atypical, ?mood driven, abstain from MJ. (4) Gender dysphoria: 01/30--expresses desire to meet with a therapist after discharge with experience with gender diverse clients, prefers gender neutral pronouns. Risk Factors Assessment : Yes Do You Have Access To A Gun?: No Health Problems: No Mental Health Diagnoses: Yes Substance Use Disorders: Yes (chronic marijuana use) Previous Attempt: No Family History of Suicide: No Previous Psychiatric Hospitalization: No Hopelessness: Yes Smoker: No Protective Factors Assessment Bahai Beliefs: No : No Responsible for Young Children: No Employed: No Stable Relationships: Yes Interval History Chief Complaint "it's my fault about the piercing, it's my fault". Review of Systems Sleep Information Total Hours of Sleep: 7.5 Meal Information Percent Meal Consumed - Breakfast: 100 Percent Meal Consumed - Lunch: 100 Percent Meal Consumed - Dinner: 75 Subjective Subjective Patient was seen & assessed and interval progress reviewed with nursing. Patient became quite upset last night when nose ring/stud came out. Reports was "playing" with it and didn't realize. Staff felt the upset was way out of proportion to the stressor. Reported worsening of aud sellers around that time but no "episode" like prior to admission. They were aware of what was happening. Told staff aud sellers are 2 men talking/commenting negatively but not command, one could be patient, "not sure". Took prn Risperdal with good tolerability, "unsure if did anything" but certainly didn't escalate and was able to sleep. This am feeling upset again as relies on the piercing to feel and look more feminine and became unsteady on feet trying to reinsert piercing, staff alerted and secured item. With regards to school, still says main stressor in that not doing "great" but doesn't really want to take time off either. Otherwise happy with the school and major itself. Discussed family meeting with mother tomorrow. States aud sellers increased again this am, does seem distressed/internally preoccupied. Requesting prn Risperdal and agreeable to trial of standing dose. States thinking about hormone therapy for some time but hasn't researched or discussed with outpatient therapist or psychiatric prescriber. Physical Exam Psychiatric Orientation: alert Apperance: + disheveled Eye Contact: + poor eye contact Motor Behavior: no abnormal motor movements Speech: normal rate/rhythm/volume of speech Affect: + depressed affect Mood: + depressed mood and + anxious mood Thought Process: + concrete thought process Thought Content: reality based without delusions Suicidal Thoughts: denies suicidal thoughts Homicidal Thoughts: denies homicidal thoughts Hallucinations: + auditory hallucinations; no visual hallucinations Cognition: attention grossly intact and language grossly intact Estimated Intelligence: consistent with education level Insight: + limited insight Judgement: + limited judgement Vital Signs (Past 24 Hours) Last Vital Signs Temp 36.4 C L 01/31/20 06:15 Pulse 100 H 01/31/20 06:15 Resp 18 01/31/20 06:15 BP 116/67 01/31/20 06:15 Pulse Ox 99 01/29/20 12:19 Results & Data ([facility]) Laboratory Results Laboratory Results - last 24 hr 01/29/20 09:43 U Marijuana THC Carboxy 28 H Drug Screen Comment SEE NOTE Current Inpatient Medications Current Inpatient Medications: Current Inpatient Medications Acetaminophen (Acetaminophen 325 Mg Tab) 650 mg PO Q4H PRN PRN Reason: Headache or Minor Fever Stop: 02/28/20 11:51 Last Admin: 01/30/20 14:45 Dose: 650 mg Documented by: Al Hydrox/Mg Hydrox/Simethicone (Aluminum/Magnesium Susp 30 Ml Udc) 30 ml PO Q4H PRN PRN Reason: GI Upset Stop: 02/28/20 11:51 Albuterol (Albuterol Hfa Inhaler 8.5 Gm) 2 - 4 puffs INH Q6H PRN PRN Reason: shortness of breath Stop: 02/28/20 12:04 Benztropine Mesylate (Benztropine Mesylate 1 Mg Tab) 1 mg PO Q6 PRN PRN Reason: Muscle Spasm Stop: 03/01/20 10:01 Bismuth Subsalicylate (Bismuth Subsalicylate Liqd 236 Ml) 15 ml PO PRN PRN PRN Reason: Loose Stool Stop: 02/28/20 11:51 Buspirone HCl (Buspirone 5 Mg Tab) 10 mg PO [id number] ANITA Stop: 02/29/20 13:59 Last Admin: 01/31/20 06:34 Dose: 10 mg Documented by: Hydroxyzine HCl (Hydroxyzine Hcl 25 Mg Tab) 50 mg PO HSZ PRN PRN Reason: Insomnia Stop: 02/28/20 11:51 Hydroxyzine HCl (Hydroxyzine Hcl 25 Mg Tab) 25 mg PO Q4H PRN PRN Reason: Anxiety Stop: 02/28/20 11:51 Last Admin: 01/30/20 03:10 Dose: 25 mg Documented by: Magnesium Hydroxide (Magnesium Hydroxide Susp 30 Ml Udc) 30 ml PO DAILY PRN PRN Reason: Constipation Stop: 02/28/20 11:51 Risperidone (Risperidone 0.5 Mg Tablet) 0.5 mg PO Q6H PRN PRN Reason: auditory sellers/agitation Stop: 02/28/20 14:24 Last Admin: 01/31/20 09:47 Dose: 0.5 mg Documented by: Risperidone (Risperidone 0.5 Mg Tablet) 0.5 mg PO [id number] ANITA Stop: 03/01/20 16:59 Sodium Chloride (Sodium Chloride 0.65% Na Soln 45 Ml ([place])) 1 - 2 sprays NA PRN PRN PRN Reason: Nasal Dryness/Congestion Stop: 02/28/20 11:51 Venlafaxine HCl (Venlafaxine Hcl Xr 150 Mg Capxr) 150 mg PO DAILY ANITA Stop: 02/29/20 08:59 Last Admin: 01/31/20 08:48 Dose: 150 mg Documented by: Venlafaxine HCl (Venlafaxine Hcl Xr 37.5 Mg Capxr) 37.5 mg PO QAM ANITA Stop: 02/29/20 08:59 Last Admin: 01/31/20 08:48 Dose: 37.5 mg Documented by: Mental Health & Subst Abuse Tx Psychiatrist Name of Psychiatrist: [facility] Garibay Psychiatrist's Date of Appointment with Psychiatrist: 02/13/20 Time of Appointment with Psychiatrist: 8:30 a.m. Psychiatric Appointment Comment: In person appt due to hospital discharge Therapist Name of Therapist: Samuel Ferro Therapist's Date of Therapist Appointment: 02/06/20 Time of Therapist Appointment: 9:30 a.m. Therapy Appointment Comment: Telehealth (will email you the link), if wanted in person please call Wall Washer Name of Wall Washer: None Post Discharge Appointments Primary Care Physician Name Of Family Doctor: Avi Mckeon Primary Care Time of Appointment with PCP: Please follow up as needed Provider Appointment Comment: [address], [place] [address] Contact Information Discharge Discharge Address: [address] [place] [address], [place] [address]
[2020-01-31] MEDS: risperiDONE 0.5 MG TABLET PO SCH (17:16)
[2020-02-01] MEDS: busPIRone 5 MG TAB PO SCH ×2 (06:25→14:33)
[2020-02-01 08:30] LABS: Glucose Fasting 92 mg/dl (70-99)
[2020-02-01 08:36] LABS: Chol HDL Ratio 5; Cholesterol 231 mg/dl (0-200); HDL Cholesterol 46 mg/dl; LDL Cholesterol Calculated 138 mg/dl; Triglycerides 233 mg/dl (0-150); VLDL Cholesterol 47 mg/dl
[2020-02-01] MEDS: VENLAFAXINE HCL XR 37.5 MG CAPXR PO SCH (08:49)
[2020-02-01] MEDS: VENLAFAXINE HCL XR 150 MG CAPXR PO SCH (08:49)
[2020-02-01] MEDS: risperiDONE 0.5 MG TABLET PO SCH ×2 (08:50→16:55)
--- NOTE | 2020-02-01 08:53 | Psychiatric Progress Note ---
Date of Service February 01, 2020 Impression / Recommendations Impression 19-year-old biologically male patient who identifies as nonbinary admitted voluntarily for inpatient psychiatric treatment on 01/29/2020 due to severe anxiety, inability to function/care for self, and failure of outpatient psychiatric treatment. It was reported that patient has been experiencing "black-outs" lasting 10-30 minutes of crying, throwing things, or staring off into the distance. Pt has a recent diagnosis of depression "with mood congruent psychotic symptoms", for which they have been taking venlafaxine 150mg and buspirone 7.5mg BID to target anxiety, but no longer feels these medications are effective. They had a brief trial of aripiprazole, but stopped the medication as it led to headaches and feeling groggy. Pt had also been prescribed bupropion 100mg but stated that this medication contributed to increased "black outs" and GI upset and was therefore not tolerated. Pt did feel that venlafaxine had historically been beneficial for mood and anxiety symptoms, and is interested in increasing the dose before trialing another agent. Of note, the patient's mother has reportedly done well with escitalopram for treatment of depression. Pt also agreed to titrating buspirone to 10mg BID to target anxiety, and we can consider further increase as indicated/tolerated. Although the patient is not yet comfortable opening up about details related to auditory hallucinations, this will need to be explored further in order to make a better diagnostic assessment. While staff builds therapeutic rapport and patient acclimates to the unit, we will offer prn dosing of risperidone 0.5mg to target hallucinations. Pt will be encouraged to participate in group and recreational programming. We will encourage a family meeting to discuss safety and discharge planning. At this time, patient is experiencing significant anxiety and is no longer able to care for their needs in the outpatient setting. They are not presently reporting SI, but did report an attempt to self-harm by cutting within the context of a blackout episode. The patient's failure of outpatient treatment is concerning and inpatient psychiatric hospitalization is felt to be medically necessary at this time. 01/31--improving, family meeting with mother today, needs referral info for therapists who specialize in gender issues. Monitor on current medications. Risk Factors Assessment : Yes Do You Have Access To A Gun?: No Health Problems: No Mental Health Diagnoses: Yes Substance Use Disorders: Yes (chronic marijuana use) Previous Attempt: No Family History of Suicide: No Previous Psychiatric Hospitalization: No Hopelessness: Yes Smoker: No Protective Factors Assessment Sabianist Beliefs: No : No Responsible for Young Children: No Employed: No Stable Relationships: Yes Interval History Chief Complaint "I'm feeling a lot better today, my symptoms are gone.". Review of Systems Sleep Information Total Hours of Sleep: 7.5 Meal Information Percent Meal Consumed - Breakfast: 100 Percent Meal Consumed - Lunch: 100 Percent Meal Consumed - Dinner: 100 Subjective Subjective Patient was seen & assessed and interval progress reviewed with nursing and social work. c/o mild sedation yesterday but denies today. States that sellers have resolved with Risperdal and asked appropriate questions about what that means re: dx of MDD with pf, vs bipolar spectrum. Meeting with mother today at 1 pm. Has considered dropping an intersession class and will discuss safety planning. Denies EPS. Reviewed need for longer term monitoring with Risperdal and had labs this am. Physical Exam Psychiatric Orientation: alert Apperance: appropriately groomed Eye Contact: good eye contact Motor Behavior: no abnormal motor movements Speech: normal rate/rhythm/volume of speech Affect: euthymic affect Mood: + anxious mood Thought Process: linear/logical thought process Thought Content: reality based without delusions Suicidal Thoughts: denies suicidal thoughts Homicidal Thoughts: denies homicidal thoughts Hallucinations: no auditory hallucinations and no visual hallucinations Estimated Intelligence: consistent with education level Insight: + limited insight Judgement: + limited judgement Vital Signs (Past 24 Hours) Last Vital Signs Temp 36.4 C L 02/01/20 06:28 Pulse 82 02/01/20 06:28 Resp 18 02/01/20 06:28 BP 118/75 02/01/20 06:28 Pulse Ox 99 01/29/20 12:19 Results & Data ([facility]) Laboratory Results Laboratory Results - last 24 hr 02/01/20 08:07 Fasting Glucose 92 Triglycerides 233 H Cholesterol 231 H LDL Cholesterol, Calc 138 VLDL Cholesterol, Calc 47 HDL Cholesterol 46 Cholesterol/HDL Ratio 5 Current Inpatient Medications Current Inpatient Medications: Current Inpatient Medications Acetaminophen (Acetaminophen 325 Mg Tab) 650 mg PO Q4H PRN PRN Reason: Headache or Minor Fever Stop: 02/28/20 11:51 Last Admin: 01/30/20 14:45 Dose: 650 mg Documented by: Al Hydrox/Mg Hydrox/Simethicone (Aluminum/Magnesium Susp 30 Ml Udc) 30 ml PO Q4H PRN PRN Reason: GI Upset Stop: 02/28/20 11:51 Albuterol (Albuterol Hfa Inhaler 8.5 Gm) 2 - 4 puffs INH Q6H PRN PRN Reason: shortness of breath Stop: 02/28/20 12:04 Benztropine Mesylate (Benztropine Mesylate 1 Mg Tab) 1 mg PO Q6 PRN PRN Reason: Muscle Spasm Stop: 03/01/20 10:01 Bismuth Subsalicylate (Bismuth Subsalicylate Liqd 236 Ml) 15 ml PO PRN PRN PRN Reason: Loose Stool Stop: 02/28/20 11:51 Buspirone HCl (Buspirone 5 Mg Tab) 10 mg PO [id number] [facility] Stop: 02/29/20 13:59 Last Admin: 02/01/20 06:25 Dose: 10 mg Documented by: Hydroxyzine HCl (Hydroxyzine Hcl 25 Mg Tab) 50 mg PO HSZ PRN PRN Reason: Insomnia Stop: 02/28/20 11:51 Hydroxyzine HCl (Hydroxyzine Hcl 25 Mg Tab) 25 mg PO Q4H PRN PRN Reason: Anxiety Stop: 02/28/20 11:51 Last Admin: 01/30/20 03:10 Dose: 25 mg Documented by: Magnesium Hydroxide (Magnesium Hydroxide Susp 30 Ml Udc) 30 ml PO DAILY PRN PRN Reason: Constipation Stop: 02/28/20 11:51 Risperidone (Risperidone 0.5 Mg Tablet) 0.5 mg PO Q6H PRN PRN Reason: auditory sellers/agitation Stop: 02/28/20 14:24 Last Admin: 01/31/20 09:47 Dose: 0.5 mg Documented by: Risperidone (Risperidone 0.5 Mg Tablet) 0.5 mg PO [id number] [facility] Stop: 03/01/20 16:59 Last Admin: 02/01/20 08:50 Dose: 0.5 mg Documented by: Sodium Chloride (Sodium Chloride 0.65% Na Soln 45 Ml ([place])) 1 - 2 sprays NA PRN PRN PRN Reason: Nasal Dryness/Congestion Stop: 02/28/20 11:51 Venlafaxine HCl (Venlafaxine Hcl Xr 150 Mg Capxr) 150 mg PO DAILY ANITA Stop: 02/29/20 08:59 Last Admin: 02/01/20 08:49 Dose: 150 mg Documented by: Venlafaxine HCl (Venlafaxine Hcl Xr 37.5 Mg Capxr) 37.5 mg PO QAM ANITA Stop: 02/29/20 08:59 Last Admin: 02/01/20 08:49 Dose: 37.5 mg Documented by: Mental Health & Subst Abuse Tx Psychiatrist Name of Psychiatrist: Silverio Garibay Psychiatrist's Date of Appointment with Psychiatrist: 02/13/20 Time of Appointment with Psychiatrist: 8:30 a.m. Psychiatric Appointment Comment: In person appt due to hospital discharge Therapist Name of Therapist: Samuel Ferro Therapist's Date of Therapist Appointment: 02/06/20 Time of Therapist Appointment: 9:30 a.m. Therapy Appointment Comment: Telehealth (will email you the link), if wanted in person please call Solar Panel Technician Name of Solar Panel Technician: None Post Discharge Appointments Primary Care Physician Name Of Family Doctor: Avi Mckeon [facility] Time of Appointment with PCP: Please follow up as needed Provider Appointment Comment: [address], [place] [address] Contact Information Discharge Discharge Address: [address] [place] [address], [place] [address]
[2020-02-01] MEDS: DOCUSATE SODIUM 100 MG CAP PO SCH ×2 (11:32→20:22)
[2020-02-01] MEDS: POLYETHYLENE (MIRALAX) 17 GM PACK PO SCH (11:33)
[2020-02-02] MEDS: busPIRone 5 MG TAB PO SCH (06:29)
[2020-02-02] MEDS: POLYETHYLENE (MIRALAX) 17 GM PACK PO SCH (08:40)
[2020-02-02] MEDS: VENLAFAXINE HCL XR 37.5 MG CAPXR PO SCH (08:41)
[2020-02-02] MEDS: DOCUSATE SODIUM 100 MG CAP PO SCH (08:41)
[2020-02-02] MEDS: VENLAFAXINE HCL XR 150 MG CAPXR PO SCH (08:41)
[2020-02-02] MEDS: risperiDONE 0.5 MG TABLET PO SCH (08:42)
--- NOTE | 2020-02-02 09:29 | Discharge Summary ---
Date of Service February 02, 2020 History of Present Illness Admission H&P per Jess Sheehan PA-C: Saeed Sahni (Jay) is a 19-year-old biologically male individual who identifies as nonbinary and prefers "they/them/their" pronouns. Language in this H&P will reflect this preference. The patient was admitted voluntarily for inpatient psychiatric treatment on 01/29/2020 after presenting to the ED for mental health evaluation. Armani was reportedly experiencing significant anxiety last evening, but was able to contract for safety in the outpatient setting. The morning of admission, it was reported that their anxiety was worse and they did not feel they were able to manage symptoms safely. Pt did report that they had recently attempted to self- harm by cutting with an X-acto knife within the contest of a "black-out" episode. These urges have become more frequent, and friends have reported concern for recent changes in behavior. Armani reported in the ED that these episodes can last for 10-30 minutes, but patient does not often recall events that occur during these times. Inpatient admission was suggested and patient was willing for discussion regarding worsening symptoms and possible medication changes. Additional stressors at this time include poor academic performance, long-distance relationship with their girlfriend, and their mother receiving treatment for breast cancer. The patient is cooperative and pleasant, but is rather timid. They states "I've been having a lot of new symptoms with my anxiety and depression. It started about a month ago." The patient reports that they had been evaluated by two psychologist recently and they were informed their diagnosis is "MDD with mood congruent psychotic symptoms." The patient also has been following with Ana M Garibay at [facility] for several years for medication management. The patient states that new symptoms of "episodes, blackouts, getting upset, irritable, stuttering, and ticking" in the last month - generally in the context of specific identified stressors. The patient states that in the moment they are not generally aware of their actions, but are able to recall events that occur during these blackouts with prompting from witnesses. The patient reports that they had previously done well with venlafaxine for treatment of anxiety and depression, but feels "I'm no longer satisfied with what it's doing." This was expressed to their outpatient psychiatric PA-C who suggested a trial of Wellbutr in. The patient states that this made the "episodes" worse and also led to GI upset. A brief trial of Abilify was also suggested; however, led to headache which patient states they could not tolerate. The patient admits they are diligent about taking their medications as prescribed. Pt does admit to increased anxiety and depression, rating average mood over the last 1-2 months as a 2-3/10 (10=best). The patient states they have been struggling intermittently with SI and SIB, even acting on SIB urges by superficially cutting their arm recently. The patient admits to passive SI, but denies plan or intent. They are denying SI presently. The patient does admit to decreased motivation and productivity, increased appetite, difficulty concentrating, hopelessness, worthlessness, and some memory concerns. The patient also admits that they have been experiencing auditory hallucinations of "several voices, they are angry" which are described as "constant, unless I'm having a really good day, but that's rare." Unfortunately, the patient states that they are "too scared to talk about this anymore." It is reported that the voices were first observed about 1 month ago. Pt was reassured that it is ok to not discuss this in detail at this time, but that it would be beneficial for patient to open up about this as they feel more comfortable with staff. Pt does admit to daily marijuana use, but denies other significant substance use. This is their first psychiatric hospitalization. Physical Exam Mental Examination See admission H&P and DOD assessment. Vital Signs (Past 24 Hours) Last Vital Signs Temp 36.5 C 02/02/20 09:27 Pulse 80 02/02/20 09:27 Resp 20 02/02/20 09:27 BP 115/75 02/02/20 09:27 Pulse Ox 99 02/02/20 09:27 Principal Diagnosis major depressive disorder, recurrent, severe with psychotic features Psychiatric Data See daily care summary. Effexor XR and Buspar were increased slightly upon adm ission by primary team. Armani remained sullena and guarded with non-specific reports of auditory hallucinations. Exhibited some lability during upset over a nose piercing that fell out/could not reinsert and accepted prn Risperdal. Informed consent was obtained for low dose Risperdal trial 0.5 mg BID for hallucinations and mood stabilization with significant improvement and resolution of hallucinations. Competed safety plan and had a successful meeting with mother. Patient is requesting discharge as desires to return to online classes tomorrow. Has agreed to stay at home for 1-2 weeks (or shorter as determined by family) prior to returning to apartment and agrees to abstain from MJ as could exacerbate patient's condition. Armani will withdraw from intersession course. 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 Discussion included that MDD with PF ultimately converts to bipolar dx in significant number of young adults and she confirmed a significant family hx on her side of the family for bipolar disorder. Will return to previous therapist and [place] for med monitoring pending availability of psychological testing or psychiatrist. Day of Discharge Assessment Armani is alert and cooperative, they report improved mood and continue to deny suicidal ideation. Anxiety is much improve and affect is spontaneously bright at times. Thankful for treatment at [facility] and hopeful with regards to treatment and progress. Voiced good understanding for need for ongoing medication monitoring, particularly for Risperdal and ultimately may benefit from a trial of lamictal as family desires to minimize exposure to atypicals longer term. No delusions, thoughts organized, denies sellers and does not appear to be responding to internal stimuli. Transition of Care Transition Of Care Record: was reviewed with the patient Advance Directives Advance Directives Information Provided: Yes Advance Directives: No Mental Health Advance Directive: No Advance Directives on File: No Living Will: No Power of Honing Machine Set Up Operator Tool: No Advance Directives Reason:: Declines as Mental Health Visit. Risk Factors Assessment : Yes Do You Have Access To A Gun?: No Health Problems: No Mental Health Diagnoses: Yes Substance Use Disorders: Yes (chronic marijuana use) Previous Attempt: No Family History of Suicide: No Previous Psychiatric Hospitalization: No Hopelessness: Yes Smoker: No Protective Factors Assessment Jew Beliefs: No : No Responsible for Young Children: No Employed: No Stable Relationships: Yes Tobacco Cessation at Discharge Tobacco Cessation Medication Prescribed at Discharge: Not Applicable/Non-Smoker Total Time Total Time Spent: Greater Than 30 Minutes Total Time Includes: Examination of the patient, Discharge Planning and Medication Reconciliation Discharge Data Lab Results 01/29/20 01/29/20 01/29/20 09:43 09:43 09:43 WBC RBC Hgb Hct MCV MCH MCHC RDW Std Deviation RDW Coeff of Ann Plt Count MPV Immature Gran % (Auto) Neut % (Auto) Lymph % (Auto) [place] % (Auto) Eos % (Auto) Baso % (Auto) Neut # (Auto) Lymph # (Auto) [place] # (Auto) Eos # (Auto) Baso # (Auto) Immature Gran # (Auto) Sodium Potassium Chloride Carbon Dioxide Anion Gap BUN Creatinine Est Cr Clr Drug Dosing Est GFR ( Amer) Est GFR (Non-Af Amer) BUN/Creatinine Ratio Glucose Fasting Glucose Calcium Total Bilirubin AST ALT Alkaline Phosphatase Total Protein Albumin Globulin Albumin/Globulin Ratio Triglycerides Cholesterol LDL Cholesterol, Calc VLDL Cholesterol, Calc HDL Cholesterol Cholesterol/HDL Ratio TSH Urine Color Yellow Urine Appearance Clear Urine pH 7.0 Ur Specific Lincoln 1.018 Urine Protein Negative Urine Glucose (UA) Negative Urine Ketones Negative Urine Blood Negative Urine Nitrite Negative Urine Bilirubin Negative Urine Urobilinogen Negative Ur Leukocyte Esterase Negative Salicylates Urine Opiates Screen Neg Ur Methadone, Qual Neg Acetaminophen Urine Barbiturates Neg Ur Phencyclidine (PCP) Neg U Amphetamin/Meth Scrn Neg MDMA (Ecstasy) Screen Neg U Benzodiazepines Scrn Neg Ur Cocaine Metabolite Neg U Marijuana (THC) Screen Pos H U Marijuana THC Carboxy 28 H Drug Screen Comment SEE NOTE Ethyl Alcohol mg/dL SARS-CoV-2 Ag (Rapid) 01/29/20 01/29/20 01/29/20 09:58 09:58 09:58 WBC 4.83 RBC 4.82 Hgb 13.9 L Hct 41.1 L MCV 85.3 MCH 28.8 MCHC 33.8 RDW Std Deviation 41.5 RDW Coeff of Ann 13.4 Plt Count 192 MPV 10.2 Immature Gran % (Auto) 0.2 Neut % (Auto) 58.6 Lymph % (Auto) 30.4 Converse % (Auto) 8.5 Eos % (Auto) 1.9 Baso % (Auto) 0.4 Neut # (Auto) 2.83 Lymph # (Auto) 1.47 Converse # (Auto) 0.41 Eos # (Auto) 0.09 Baso # (Auto) 0.02 Immature Gran # (Auto) 0.01 Sodium 142 Potassium 4.0 Chloride 109 H Carbon Dioxide 26 Anion Gap 6.0 BUN 11 Creatinine 0.78 Est Cr Clr Drug Dosing 187.0 Est GFR ( Amer) > 150.0 Est GFR (Non-Af Amer) 130.9 BUN/Creatinine Ratio 14.2 Glucose 94 Fasting Glucose Calcium 9.2 Total Bilirubin 0.3 AST 19 ALT 29 Alkaline Phosphatase 109 Total Protein 7.2 Albumin 3.7 Globulin 3.5 Albumin/Globulin Ratio 1.1 Triglycerides Cholesterol LDL Cholesterol, Calc VLDL Cholesterol, Calc HDL Cholesterol Cholesterol/HDL Ratio TSH 0.684 Urine Color Urine Appearance Urine pH Ur Specific Lincoln Urine Protein Urine Glucose (UA) Urine Ketones Urine Blood Urine Nitrite Urine Bilirubin Urine Urobilinogen Ur Leukocyte Esterase Salicylates < 1.7 L Urine Opiates Screen Ur Methadone, Qual Acetaminophen < 2 L Urine Barbiturates Ur Phencyclidine (PCP) U Amphetamin/Meth Scrn MDMA (Ecstasy) Screen U Benzodiazepines Scrn Ur Cocaine Metabolite U Marijuana (THC) Screen U Marijuana THC Carboxy Drug Screen Comment Ethyl Alcohol mg/dL SARS-CoV-2 Ag (Rapid) 01/29/20 01/29/20 02/01/20 09:58 Unknown 08:07 WBC RBC Hgb Hct MCV MCH MCHC RDW Std Deviation RDW Coeff of Ann Plt Count MPV Immature Gran % (Auto) Neut % (Auto) Lymph % (Auto) [place] % (Auto) Eos % (Auto) Baso % (Auto) Neut # (Auto) Lymph # (Auto) [place] # (Auto) Eos # (Auto) Baso # (Auto) Immature Gran # (Auto) Sodium Potassium Chloride Carbon Dioxide Anion Gap BUN Creatinine Est Cr Clr Drug Dosing Est GFR ( Amer) Est GFR (Non-Af Amer) BUN/Creatinine Ratio Glucose Fasting Glucose 92 Calcium Total Bilirubin AST ALT Alkaline Phosphatase Total Protein Albumin Globulin Albumin/Globulin Ratio Triglycerides 233 H Cholesterol 231 H LDL Cholesterol, Calc 138 VLDL Cholesterol, Calc 47 HDL Cholesterol 46 Cholesterol/HDL Ratio 5 TSH Urine Color Urine Appearance Urine pH Ur Specific Lincoln Urine Protein Urine Glucose (UA) Urine Ketones Urine Blood Urine Nitrite Urine Bilirubin Urine Urobilinogen Ur Leukocyte Esterase Salicylates Urine Opiates Screen Ur Methadone, Qual Acetaminophen Urine Barbiturates Ur Phencyclidine (PCP) U Amphetamin/Meth Scrn MDMA (Ecstasy) Screen U Benzodiazepines Scrn Ur Cocaine Metabolite U Marijuana (THC) Screen U Marijuana THC Carboxy Drug Screen Comment Ethyl Alcohol mg/dL < 3.0 SARS-CoV-2 Ag (Rapid) Negative Hospital Course (1) Mood disorder: 01/28 - Working diagnosis of unspecified mood disorder. Differential includes: major depressive disorder, MDD with psychotic features, substance-induced mood disorder/hallucinations, schizoaffective disorder, personality disorder, or other possible diagnoses. Will build therapeutic rapport with the patient to better determine the most appropriate diagnosis as they feel comfortable discussing symptoms. - Titrating venlafaxine to 187.5mg qAM - Titrating buspirone to 10mg BID, adding prn risperidone 0.5mg to be used to target auditory hallucinations - Will attempt to gather collateral information from outpatient psychiatric providers - Encourage participation in group and recreational programming - Assist with development of healthy and effective coping skills - Encourage a family meeting to discuss discharge and safety planning - 15 minute observation checks to ensure safety while admitted to a locked behavioral health unit 01/29--shifted doses of Buspar for better day time coverage, monitor for activation on higher dose of Effexor XR. Given other symptoms/reaction to Wellbutrin, hesitant to continue antidepressant alone. Consider Lamictal. Abstain from MJ. (2) Auditory hallucinations: 01/28 - Pt is not yet comfortable discussing the auditory hallucinations in great detail, which limits the ability to better determine their etiology. They certainly could be a function of patient's regular marijuana use. They could also be occurring within the context of MDD with psychotic features, schizoaffective disorder, or a function of an underlying personality disorder. - Will build therapeutic rapport and assist patient in opening up about these details during their stay. - In the interim, prn risperidone 0.5mg is available to target the auditory hallucinations directly 01/29--if sellers recur, encouraged to use Risperdal prn. Abstain from MJ. 01/30--add standing Risperdal 0.5 mg PO BID (am and evening) for depression with pf vs mixed episode bipolar, fasting metabolic labs for am. Discussed need for ongoing monitoring for TD and metabolic abnormalities, no abnormal motor movements at baseline. (3) Generalized anxiety disorder with panic attacks: 01/28 - "Black outs" seem to be most consistent with panic attacks, and result from specific stressful triggers. - Titrating venlafaxine and buspirone as above, adding risperidone prn for auditory hallucinations/agitation - PRN hydroxyzine is available as needed for anxiety/sleep - Assist patient with development of healthy and effective coping strategies 01/29--atypical, ?mood driven, abstain from MJ. (4) Gender dysphoria: 01/30--expresses desire to meet with a therapist after discharge with experience with gender diverse clients, prefers gender neutral pronouns. Mental Health & Subst Abuse Tx Psychiatrist Name of Psychiatrist: Silverio Garibay Psychiatrist's Date of Appointment with Psychiatrist: 02/13/20 Time of Appointment with Psychiatrist: 8:30 a.m. Psychiatric Appointment Comment: In person appt due to hospital discharge Therapist Name of Therapist: Samuel Ferro Therapist's Date of Therapist Appointment: 02/06/20 Time of Therapist Appointment: 9:30 a.m. Therapy Appointment Comment: Telehealth (will email you the link), if wanted in person please call [employer] Name of Vinyl Welder And Fabricator: None Post Discharge Appointments Primary Care Physician Name Of Family Doctor: [facility] - Dr. Ryan Mckeon Primary Care Time of Appointment with PCP: Please follow up as needed Provider Appointment Comment: [address], [place] [address] Smoking Cessation Counseling Tobacco Cessation Medication Prescribed at Discharge: Not Applicable/Non-Smoker Other #1: Name of Aftercare Appointment: [facility] - Stephanie Ni LCSW Phone Number of Aftercare Appointment: [phone] Aftercare Appointment Comment: Potential option for gender specialty therapist #2: Name of Aftercare Appointment: [facility] - Dr. Vielka Tobias Phone Number of Aftercare Appointment: [phone] Aftercare Appointment Comment: Potential option for gender specialty therapist #3: Name of Aftercare Appointment: [facility] Phone Number of Aftercare Appointment: [phone] Aftercare Appointment Comment: Potential psychiatry option #4: Name of Aftercare Appointment: [facility] Phone Number of Aftercare Appointment: [phone] Aftercare Appointment Comment: Potential psychiatry option Contact Information Discharge Discharge Address: [address] [place] [address], [place] [address] Discharge Plan Discharge Items Patient Disposition: Home - Self-Care Reason For Visit: DEPRESSION, NOS Discharge Diagnosis: major depressive disorder with psychotic features, monitor for meeting bipolar disorder criteria Activity: Resume your previous activity Non-emergency contact: Primary Care Provider, Psychiatrist and Therapist Call non-emergency contact if: you have any medication questions and your symptoms worsen Follow-up/Referrals: Ryan Mckeon DO [Primary Care Provider] - Diet: Regular Addtl Attending Provider Instructions: SPECIAL CARE INSTRUCTIONS: 1. Follow through with your scheduled aftercare appointments. If unable to keep an appointment, please call to reschedule. 2. Take your medication only as prescribed. Medication should not be changed or stopped without the approval of your doctor. In the event of worsening symptoms or concerns about side effects, contact your doctor immediately. 3. Utilize new healthy coping skills, anger management skills, and stress management skills learned during your hospitalization. Journal feelings and process them with a support person. Identify stressors or situations that may result in relapse, deterioration or inappropriate behaviors and develop a plan to deal with those issues. 4. If your coping skills are ineffective and you are in crisis, contact your outpatient providers for direction. If unable to reach your providers, please call the [facility] CRISIS LINE AT , go to the [facility] walk-in center at [address] [facility], [facility] [address], [place], or go to the closest Emergency Room. 5. Avoid alcohol and un-prescribed drugs. 6. You have been provided with the Mental Health Advance Directives Pamphlet for your review. AFTERCARE APPOINTMENTS: * Please call your insurance company prior to your scheduled appointment to co nfirm your aftercare providers are covered. Take your insurance information to your appointments. WHO TO CALL AND WHEN: Medical Emergencies: For questions or emergencies related to your hospital stay, please contact the Inpatient Behavioral Health Unit at [phone]. A speech and language clinician is on-call 26/09 for the Behavioral Health Unit for emergencies At any time you feel your situation is an emergency, you may also call 911 immediately. Pending Studies at Discharge: No Stand-Alone Forms: My VersionOne, Smoking Cessation Medications and DC Order Prescriptions: New buspirone 10 mg tablet 10 mg PO [id number] 30 Days Qty: 60 RF: 0 venlafaxine 37.5 mg Capsule,Extended Release 24hr 37.5 mg PO QAM 30 Days Qty: 30 RF: 0 risperidone 0.5 mg Tablet 0.5 mg PO [id number] 30 Days Qty: 60 RF: 0 risperidone 0.5 mg Tablet 0.5 mg PO DAILY PRN (Reason: hallcuinations) Qty: 1 RF: 0 ALBUTEROL HFA (VENTOLIN HFA) 200 PUFFS/18,000 MCG AEROSOL,SOLN 2 - 4 puff Inhalation Q6H PRN (Reason: Wheezing) Qty: 1 RF: 0 Continued venlafaxine 150 mg capsule,extended release 24hr 150 mg PO DAILY RF: 0 Discontinued ALBUTEROL HFA (VENTOLIN HFA) 200 PUFFS/18,000 MCG AEROSOL,SOLN 2 - 4 puff Inhalation Q6H Qty: 0 RF: 0 buspirone 7.5 mg tablet 7.5 mg PO BID RF: 0 Discharge Orders: Discharge Order (Routine); Ordered 02/02/20 Ordered By: Rosibel Larry Admission Data Admit Date/Time: 01/29/20 11:52 Attending Provider: Radha Peacock Admit Provider: Radha Peacock Primary Care Provider: Ryan Mckeon Other Interventions: Discharge Summary Assessment (RN) Last Done: 02/02/20 09:27 PSY Interdisciplinary Discharge Planning Last Done: 02/01/20 14:22 Coding Level of Care Code 47092 D/C day mgmt > 30 min Diagnoses Mood disorder F39 Auditory hallucinations R44.0 Generalized anxiety disorder with panic attacks F41.1; F41.0 Gender dysphoria F64.9
== END 2020-02-02 11:53 | disposition home or self-care (01) | DRG 885 ==
LOC: ED 09:36 → 3S 11:52